=== PATIENT | female | born 1930 | race Caucasian/White ===

== ENCOUNTER → 2019-05-06 | Outpatient (CLI) | payer OTHER, MEDICARE ==
[~2019-05-06] VITALS: Ht 160 cm; Wt 72.7 kg
[~2019-05-06] MED LIST: ALTACE 1.25 M1.25 MG PO; AMLODIPINE BESYL5 MG PO; ASPIR 8181 M1 PO; ATIVAN0.5 MG PO; ATORVASTATIN CA20 MG PO; BIOTIN10 MG PO; BYSTOLIC10 MG PO; COQ-10100 MG PO; COUMADIN 5 MG TA5 M1; FISH OIL 1,001000 M1 PO; FISHOIL PO; FUROSEMIDE 20 M20 M1 PO; GRAPE SEED25 MG PO; INSPRA25 MG PO; MULTIVITAMINS PO; NEPAFENAC OPHTHALMIC; PENTOXIFYLLINE400 MG PO; TEVETEN600 MG PO; TRAMADOL-ACETA1 EACH; TRAMADOL-ACETA1 EACH PO; VIGAMOX3 M1 OPHTHALMIC; VITAMIN B-625 MG PO; VITAMIN D-32000 UNIT PO; [UNRECOGNIZED DRUG - OTHER] OPHTHALMIC; [UNRECOGNIZED DRUG - OTHER] PO
--- NOTE | ~2019-05-06 | HPC ---
[facility] [address] [place] [address] PAIN MANAGEMENT CONSULTATION Name: MARGARET MONTOYA Room #: [facility].#: [id number] Admission: 05/06/19 ������������������ Attend Phys: Nasim Swift MD Discharge: ������������������ Date of : [birth year] Report #: [id number] THIS REPORT FOR: //name// CC: Augustus Swift DATE OF SERVICE: 05/06/2019 CHIEF COMPLAINT: Low back pain with radiation into the sacroiliac joints bilaterally. The patient is here today complaining of pain localized over the sacroiliac joints. This is a relatively new pain for her, has been going on since November and has not been able to be resolved with simple measures including pain medications, cold, heat and ice. It has limited her walking and her treadmill use because of the localized in severity. She describes it periodic, more often on than off. Descriptors include shooting, burning, cramping, crushing, sharp and stabbing and the pain intensity could be as high as a 9/10. Pain drawing isolates the pain directly over the sacroiliac joints. MEDICATIONS: Aspirin, amlodipine, Bystolic, ramipril, atorvastatin. ALLERGIES: HYDROCODONE. 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 REVIEW OF SYSTEMS: Positive for fatigue, generalized weakness, dyspnea on exertion, nocturia. PAST SURGICAL HISTORY: Natural childbirth 1954 and 1957, history of sclerosing panniculitis following delivery. 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 SOCIAL HISTORY: She is independent and . She denies use of tobacco and alcohol. She was retired, but continues to volunteer work. PHYSICAL EXAMINATION: GENERAL: This is a pleasant 89-year-old who looks much younger than her stated age. HEENT: Normal. CHEST: Clear. There is a grade 3/6 systolic murmur heard throughout the precordium. [facility] [address] [place] [address] PAIN MANAGEMENT CONSULTATION Name: MARGARET MONTOYA Room #: [facility]#: [id number] Admission: 05/06/19 ������������������ Attend Phys: Nasim Swift MD Discharge: ������������������ Date of : [birth year] Report #: [id number] ABDOMEN: Soft. MUSCULOSKELETAL: Examination of the spine reveals good alignment. Forward flexion and extension performed with only exacerbation of pain localized in the sacroiliac joints where there is marked tenderness. Straight leg raising is negative for radiculopathy. No weakness, numbness or tingling is noted in the lower extremities. Deep tendon reflexes are diminished bilaterally at knees and ankles. IMPRESSION: Sacroiliac joint pain bilateral. RECOMMENDATION: Bilateral sacroiliac joint injections under fluoroscopic guidance. PROCEDURE: She was taken to fluoroscopic suite, placed prone. Skin prepped with ChloraPrep. Skin anesthetized first over the left SI joint. A 22-gauge spinal needle was advanced into the posterior inferior capsule of the joint and I injected 0.25 mL of Omnipaque to demonstrate an excellent arthrogram of the sacroiliac joint. It was then followed by 1 mL of 0.5% bupivacaine mixed with 20 mg of triamcinolone. She tolerated the procedure well. C-arm was then moved to the right and mirror image injection was performed at the right sacroiliac joint using similar technique. I was able again to obtain an excellent arthrogram before injecting the 0.5% bupivacaine 0.5 mL and 20 mg of triamcinolone. She tolerated the procedure well and was observed for 45 minutes and discharged. Pain score reduced at discharge. Follow up as needed. ��������������������������������������������� ���������������������������������������� By: ��������������������������������������������� [id number] Nasim Swift MD /nt
[2019-05-06 14:35] VITALS: BP 180/56
--- NOTE | 2019-05-06 15:26 | NUR ---
Pain Clinic Assessment: 1. History of Osteoarthritis: * back History of Rheumatoid Arthritis: * na 2. Height: 5 ft. 3 in. 160.0 cm. Weight: 160.2 lb. oz. 72.666 kg. Patient's BMI: 28.4 3. Vital Signs: BP: 180/56 Pulse: 60 Resp: 18 Temp: 02 Sat: 98 ECG Mon: 4. Pain Intensity: 9 5. Fall Risk: Dizziness: N Needs help standing or walking: Y Fallen in the last 3 months: N Fall risk comments: 6. Patient on Blood Thinner: None 7. History of Hypertension: Y 8. Opioid Therapy greater than 6 weeks: N Opiate Contract Signed: 9. Risk Assessment Tool Provided: 10. Functional Assessment Tool: 11. Recreational Drug Use: Never Drug Type: Tobacco Use: Never Smoker Tobacco Type: Amount or Packs/day: How Many Years: Alcohol Use: No Frequency: Quant:
== END | disposition home or self-care (01) ==
LOC: PAIN 06:59
DX: M53.3 Sacrococcygeal disorders, not elsewhere classified (principal); Z79.82 Long term (current) use of aspirin; Z79.899 Other long term (current) drug therapy; Z88.8 Allergy status to other drugs, medicaments and biological substances; Z98.890 Other specified postprocedural states